=== PATIENT | female | born 1965 | race Caucasian/White ===

== ENCOUNTER 2017-08-13 18:05 | Emergency (ER) | payer BC ==
[~2017-08-13] VITALS: Ht 160 cm; Wt 86.2 kg
[~2017-08-13 18:05] MED LIST: ALBU90OI61 INH; ENOX30I; ERGO50000 PO; HYDSUL200; HYDSUL200 PO; Lovenox150 MG/ML SC; MULVITMINF PO; OXYACE5T PO; QVAR7.3 G1 INH; RXOXYACE PO; WARF5 PO
[2017-08-13 19:05] LABS: BASOPHILS ABSOLUTE AUTO 0.01 K/mm3 (0.00-0.23); BASOPHILS PERCENT AUTO 0 % (0-2); EOSINOPHILS ABSOLUTE AUTO 0.09 K/mm3 (0.00-0.68); EOSINOPHILS PERCENT AUTO 3 % (0-6); Hematocrit 39.5 % (33.0-51.0); Hemoglobin 13.1 g/dL (11.5-16.0); IMMATURE GRAN ABSOLUTE AUTO 0.01 K/mm3 (0.00-0.10); IMMATURE GRAN PERCENT AUTO 0 % (0-1); LYMPHOCYTES ABSOLUTE AUTO 0.96 K/mm3 (0.84-5.20); LYMPHOCYTES PERCENT AUTO 28 % (21-46); MONOCYTES ABSOLUTE AUTO 0.35 K/mm3 (0.16-1.47); MONOCYTES PERCENT AUTO 10 % (4-13); Mean Corpuscular HGB Conc 33.2 g/dL (31.5-36.5); Mean Corpuscular Volume 88 fL (80-100); Mean Platelet Volume 9.4 fL (9.1-12.4); NEUTROPHILS ABSOLUTE AUTO 1.98 K/mm3 (1.96-9.15); NEUTROPHILS PERCENT AUTO 58 % (41-73); Platelet Count 141 K/mm3 (150-400); RDW Coefficient Variation 12.5 % (11.7-14.2); RDW Standard Deviation 39.8 fL (35.1-46.3); Red Blood Cell Count 4.51 M/mm3 (3.80-5.20)
[2017-08-13 19:20] LABS: International Normalized Ratio 1.6; Prothrombin Time Results 16.9 Sec (9.7-11.5)
[2017-08-13 19:27] LABS: Alanine Aminotransfer (ALT/SGP 26 U/L (12-78); Albumin, Blood 3.9 g/dL (3.4-5.0); Albumin/Globulin Ratio 0.9 (0.8-1.8); Alk Phos 97 U/L (50-136); Anion Gap 9 mmol/L (6-16); Aspartate Aminotrans (AST/SGOT 22 U/L (12-37); Bilirubin, Total 0.4 mg/dL (0.1-1.0); Blood Urea Nitrogen 15 mg/dL (8-24); CO2, Blood 25 mmol/L (21-32); Calcium, Blood 8.9 mg/dL (8.5-10.1); Chloride, Blood 105 mmol/L (98-108); Creatinine, Blood 0.68 mg/dL (0.40-1.00); Globulin, Blood 4.4 g/dL (2.2-4.0); Glomerular Filtration Rate >60 (60-); Glucose, Blood 94 mg/dL (70-99); Sodium, Blood 139 mmol/L (136-145); Total Protein, Blood 8.3 g/dL (6.4-8.2); Troponin I <0.015 ng/mL (0.000-0.040)
== END 2017-08-13 21:09 | disposition home or self-care (01) ==
LOC: ER 18:05
PROVIDERS: Physician Assistant
DX: I27.82 Chronic pulmonary embolism (principal); R07.9 Chest pain, unspecified; Z88.0 Allergy status to penicillin; Z88.1 Allergy status to other antibiotic agents; Z79.899 Other long term (current) drug therapy; Z79.01 Long term (current) use of anticoagulants; Z87.891 Personal history of nicotine dependence
CPT/HCPCS: 36415; 71046; 71260; 80053; 83880; 84484; 85025; 85610; 93005; 93010; 99284; Q9967

== ENCOUNTER 2021-04-12 11:14 | Emergency (ER) | payer BC ==
[~2021-04-12] VITALS: Ht 157.5 cm; Wt 79.4 kg
[2021-04-12] MEDS ORDERED: ZARXIO300 MCG/01 IJ (11:42)
[2021-04-12 11:47] LABS: BASOPHILS ABSOLUTE AUTO 0.05 K/mm3 (0.00-0.23); BASOPHILS PERCENT AUTO 0 % (0-2); EOSINOPHILS ABSOLUTE AUTO 0.03 K/mm3 (0.00-0.68); EOSINOPHILS PERCENT AUTO 0 % (0-6); Hematocrit 42.5 % (33.0-51.0); Hemoglobin 14.1 g/dL (11.5-16.0); IMMATURE GRAN ABSOLUTE AUTO 0.06 K/mm3 (0.00-0.10); IMMATURE GRAN PERCENT AUTO 0 % (0-1); LYMPHOCYTES ABSOLUTE AUTO 0.75 K/mm3 (0.84-5.20); LYMPHOCYTES PERCENT AUTO 4 % (21-46); MONOCYTES PERCENT AUTO 3 % (4-13); Mean Corpuscular HGB 30.1 pg (26.0-34.0); Mean Corpuscular HGB Conc 33.2 g/dL (31.5-36.5); Mean Corpuscular Volume 91 fL (80-100); Mean Platelet Volume 9.5 fL (9.1-12.4); NEUTROPHILS ABSOLUTE AUTO 15.74 K/mm3 (1.96-9.15); NEUTROPHILS PERCENT AUTO 92 % (41-73); Platelet Count 155 K/mm3 (150-400); RDW Coefficient Variation 12.4 % (11.7-14.2); RDW Standard Deviation 40.6 fL (35.1-46.3); Red Blood Cell Count 4.69 M/mm3 (3.80-5.20); White Blood Cell Count 17.13 K/mm3 (4.00-11.30)
[2021-04-12 12:01] LABS: International Normalized Ratio 3.9; Prothrombin Time Results 37.5 Sec (9.7-11.5)
[2021-04-12 12:09] LABS: Alanine Aminotransfer (ALT/SGP 22 U/L (12-78); Albumin, Blood 3.9 g/dL (3.4-5.0); Albumin/Globulin Ratio 0.8 (0.8-1.8); Alk Phos 99 U/L (50-136); Anion Gap 6 mmol/L (6-16); Aspartate Aminotrans (AST/SGOT 21 U/L (12-37); Bilirubin, Total 0.5 mg/dL (0.1-1.0); Blood Urea Nitrogen 16 mg/dL (8-24); CO2, Blood 26 mmol/L (21-32); Calcium, Blood 9.2 mg/dL (8.5-10.1); Chloride, Blood 106 mmol/L (98-108); Globulin, Blood 4.9 g/dL (2.2-4.0); Glomerular Filtration Rate >60 (60-); Glucose, Blood 99 mg/dL (70-99); Sodium, Blood 138 mmol/L (136-145); Total Protein, Blood 8.8 g/dL (6.4-8.2); Troponin I <0.015 ng/mL (0.000-0.040)
== END 2021-04-12 17:14 | disposition home or self-care (01) ==
LOC: ER 11:14
PROVIDERS: Emergency Medicine
DX: R07.2 Precordial pain (principal); D72.829 Elevated white blood cell count, unspecified; R06.02 Shortness of breath; R79.1 Abnormal coagulation profile; Z86.711 Personal history of pulmonary embolism; Z88.0 Allergy status to penicillin; Z88.1 Allergy status to other antibiotic agents; Z79.01 Long term (current) use of anticoagulants; Z79.899 Other long term (current) drug therapy; Z86.718 Personal history of other venous thrombosis and embolism; Z87.891 Personal history of nicotine dependence
CPT/HCPCS: 71260; 80053; 84484; 85025; 85610; 93005; 93010; 99284-25; J7030; Q9967

== ENCOUNTER 2021-05-17 08:12 | Day surgery (SDC) | payer BC ==
[~2021-05-17] VITALS: Ht 157.5 cm; Wt 80.0 kg
[~2021-05-17 08:12] MED LIST changes: +ZARXIO300 MCG/01 IJ
[2021-05-17] MEDS ORDERED: ENOX80I SC (08:46)
[2021-05-17] MEDS ORDERED: METO25ER (08:52)
[2021-05-17] MEDS ORDERED: METO25 PO (08:54)
[2021-05-17] MEDS ORDERED: 1/2 NS 250ml250 ML (08:55)
[2021-05-17] MEDS ORDERED: ENTRESTO 24 MG1 EACH PO (08:55)
[2021-05-17] MEDS ORDERED: SPIR25 PO (08:56)
--- NOTE | 2021-05-17 10:34 | NUR ---
PT ARRIVED BACK TO RECOVERY ROOM IN BED. RIGHT RADIAL TR BAND SITE SOFT NON-TENDER WITH NO HEMATOMA, NO PULSATILE BLEEDING AND WRIST BOARD IN PLACE. RIGHT FEMORAL GROIN SITE SOFT NON-TENDER WITH NO HEMATOMA, NO PULSATILE BLEEDING AND INTACT DRESSING. PT DENIES CHEST PAIN. CALL LIGHT IN REACH.
--- NOTE | 2021-05-17 10:41 | NUR ---
DR VERGARA IN ROOM TO SEE PT.
--- NOTE | 2021-05-17 12:55 | NUR ---
REMOVED 4 CC OF AIR FROM RIGHT TR BAND AT 1240 AND NOTED PULSATILE BLEEDING 4 CC OF AIR RETURNED TO TR BAND AND BLEEDING STOPPED. WILL CONTINUE TO MONITOR.
--- NOTE | 2021-05-17 13:09 | NUR ---
DISCHARGE INSTRUCTIONS REVIEWED AND ALL QUESTIONS ANSWERED. NO CHANGES TO R TR BAND SITE; NO PULSATILE BLEEDING, NO HEMATOMAA ND INFLATED TR BAND IN PLACE WITH WRIST BOARD. R FEM GROIN SITE STILL SOFT NON-TENDER WITH NO HEMATOMA, NO PULSATILE BLEEDING AND INTACT DRESSING. HOB UP TO 35 DEGREES. CALL LIGHT IN REACH.
--- NOTE | 2021-05-17 13:44 | NUR ---
NO CHANGES TO R FEM GROIN SITE OR R RAD TR BAND SITES. PT OFFERED DRINK OR FOOD AND REFUSED.
--- NOTE | 2021-05-17 15:00 | NUR ---
1cc air removed from TR band no bleeding no swelling
--- NOTE | 2021-05-17 15:05 | NUR ---
1cc air removed from TR band no bleeding no hematoma.
--- NOTE | 2021-05-17 15:14 | NUR ---
1cc air removed from TR band no bleeding no hematoma
--- NOTE | 2021-05-17 15:15 | NUR ---
Ramona placed by kristine
--- NOTE | 2021-05-17 15:21 | NUR ---
2cc air removed from TR band. no bleeding. no hematoma. right groin site soft and nontender. dressing dry and in tact. no bleeding no hematoma.
--- NOTE | 2021-05-17 15:47 | NUR ---
air out of TR band site soft and nontender. no bleeding. no hematoma. right groin site unchanged.
--- NOTE | 2021-05-17 16:00 | NUR ---
patient ambulated to restroom. right groin site remains soft and nontender. no hematoma. no bleeding
--- NOTE | 2021-05-17 16:41 | NUR ---
patient verbalized understanding of discharge instructions and precautions. TR band removed and cloth dotplaced to site. wrist board laced to right wrist. site soft and nontender. no hematoma. no bleeding. right groin site stable. patient dressed. no further questions. patient taken to waiting in car via wheel chair by Mary MILLER.
== END 2021-05-17 17:00 | disposition home or self-care (01) ==
LOC: MHTC 08:12
DX: I42.8 Other cardiomyopathies (principal); R94.39 Abnormal result of other cardiovascular function study; R00.0 Tachycardia, unspecified; I11.0 Hypertensive heart disease with heart failure; I50.22 Chronic systolic (congestive) heart failure; E66.9 Obesity, unspecified; R07.89 Other chest pain; R06.02 Shortness of breath; E78.5 Hyperlipidemia, unspecified; Z87.891 Personal history of nicotine dependence; Z88.0 Allergy status to penicillin; Z88.8 Allergy status to other drugs, medicaments and biological substances
CPT/HCPCS: 76937; 85347; 93246; 93454; 99152; 99153; A9270; C1760; C1769; C1894; J0461; J1644; J2250; J2370; J3010; J7030; J7050; Q9967

== ENCOUNTER 2021-05-29 13:41 | Day surgery (SDC) | payer BC ==
[~2021-05-29] VITALS: Ht 157.5 cm; Wt 81.8 kg
[~2021-05-29 13:41] MED LIST changes: +1/2 NS 250ml250 ML; +ENOX80I SC; +ENTRESTO 24 MG1 EACH PO; +METO25 PO; +METO25ER; +SPIR25 PO
--- NOTE | 2021-05-29 14:14 | NUR ---
PATIENT BROUGHT TO [facility] FOR PREPERATION FOR DR. ZHU TO INJEST A RIGHT FEMORAL ARTERY PSEUDOANERYSM. PIV STARTED TO [facility] LEFT HAND AND ADMISSION NURSING ASSESSMENT DONE. WAITING FOR MD TO ARRIVE.
--- NOTE | 2021-05-29 14:35 | NUR ---
DR. ZHU AT THE BEDSIDE AND SPOKE WITH THE PATIENT. BRINGING THE BANKING SERVICES OFFICER TO THE BEDSIDE TO OBTAIN SECONDARY PICTURES
--- NOTE | 2021-05-29 14:54 | NUR ---
FERMÍN FROM ULTRASOUND HERE AND DR. ZHU CALLED TO THE BEDSIDE. EVALUATION DONE AT THE BEDSIDE.
--- NOTE | 2021-05-29 15:01 | NUR ---
DR. ZHU AND LOGISTICS ANALYTICS MANAGER REVEIWED THE ULTRASOUND ACTIVELY AND AFTER TALKING WITH THE PATIENT DECIDED TO FOLLOW THIS UP IN ONE WEEK WITH THE PATIENT AND SPOKE WITH THE PATIENT REGARDING SYMPTOMS TO WATCH FOR. WE ARE DISCHARGING THE PATIENT HOME AT THIS TIME. PIV REMOVED FROM DOMINIQUE LEFT HAND AND PATEITN DRESSED AMD ALL BELONGING GATHERED.
--- NOTE | 2021-05-29 15:18 | NUR ---
PIV REMOVED FROM DOMINIQUE LEFT HAND, CATH TIP INTACT AND PRESSURE DRESSING APPLIED. PATIENT GATHERED ALL BELONGINGS. DISCHARGED HOME. WILL RETURN NEXT WEEK FOR A VASCULAR ULTRASOUND (ORDERED BY CORNEL IN DR. ZHU'S OFFICE) AND WILL FOLLOW UP WITH THOSE RESULTS. PATIENT INSTRUCTED TO RETURN TO THE EMERGENCY ROOM IF ANY CHANGES IN CONDITION OR CALL DR. ZHU'S OFFICE.
== END 2021-05-29 15:00 | disposition home or self-care (01) ==
LOC: MHTC 13:41
DX: T81.718A Complication of other artery following a procedure, not elsewhere classified, initial encounter (principal); I72.4 Aneurysm of artery of lower extremity; Z53.9 Procedure and treatment not carried out, unspecified reason; I50.20 Unspecified systolic (congestive) heart failure; I42.8 Other cardiomyopathies; E66.9 Obesity, unspecified; Z86.718 Personal history of other venous thrombosis and embolism; Z79.01 Long term (current) use of anticoagulants; Z86.711 Personal history of pulmonary embolism; Z87.891 Personal history of nicotine dependence; Z88.1 Allergy status to other antibiotic agents; Z88.0 Allergy status to penicillin; Z68.32 Body mass index [BMI] 32.0-32.9, adult
CPT/HCPCS: J7050